=== PATIENT | male | born 1985 | race African-American/Black ===

== ENCOUNTER 2019-02-14 10:39 | Outpatient (CLI) | payer OTHER ==
--- NOTE | 2019-02-14 11:44 | CT ---
CT of the chest without IV contrast CT of the abdomen with and without IV contrast INDICATION: History of suspicious lung nodule seen on outside CT evaluation. History of liver lesion seen on an outside CT evaluation. Contrast: 70 cc of [id number] TECHNIQUE: Multiple CT images were obtained of the thorax without IV contrast. Axial, coronal and sag ittal reformatted images were constructed from the raw data. Comparisons are unavailable of the chest. Multiple CT images were obtained of the abdomen with and without IV contrast utilizing a renal mass p rotocol. Axial, coronal and sagittal reformatted images were constructed from the raw data. Comparisons are unavailable of the abdomen. FINDINGS: CT of the chest without contrast: No suspicious pulmonary nodule is identified. There is a stable tiny sub-4 mm pulmonary nodule within the lateral right middle lobe. The right upper lobe, right lower lobe, left upper lobe, lingula and left lower lobe are clear. The lack of IV contrast limits evaluation for hilar adenopathy. No def inite mediastinal lymphadenopathy is evident. The lack of IV contrast limits evaluation of heart and great vessels. No definite axillary lymphadenopathy is noted. IMPRESSION: 1. No suspicious pulmonary nodule. There is a sub-4 mm pulmonary nodule lateral right middle lobe. CT the abdomen with and without contrast There is diffuse fatty infiltration of the liver with areas of focal fatty sparing seen near the gall bladder fossa as well as the falciform ligament. There is a small hyperenhancing lesion within the medial left hepatic lobe on image 15 of series 9 measuring 7 mm that appears to fade to background de nsity on the delayed phase images. A similar enhancing subcentimeter nodule is seen within the right hepatic lobe on image 27 of series 9 measuring 6 mm. A more prominent nodule is seen within the lateral right hepatic lobe on image 36 series 9 measuring 1.2 cm. This lesion demonstrates some areas of peripheral nodular discontinuous enhancement with central filling is consistent with a small hemangioma. The remaining visualized portions of the abdomen demonstrate normal appearance of the pancreas, adren al glands, spleen and kidneys. No free fluid or enlarged lymph nodes are evident. There is postsurgical change of an appendectomy. No acute osseous abnormality is seen within the thorax or abdomen. IMPRESSION: 1. Diffuse fatty liver. 2. 1.2 cm lesion within the lateral right hepatic lobe demonstrates enhancement characteristics consi stent with a benign hemangioma. There are 2 additional hyperenhancing lesion seen within the medial left hepatic lobe and segment 5 of the right hepatic lobe that fades to background on the delayed pha se images and may reflect slightly atypical flash filling hemangioma. As a conservative measure a follow-up examination in 6 months is recommended to document stability. 3. Postsurgical change of a prior appendectomy.
[2019-02-14] MEDS ORDERED: ISOVUE-370 76%-LOCM 1 ML ONE (17:50)
== END 2019-02-14 10:40 | disposition home or self-care (01) ==
LOC: BICCT 10:39
DX: R91.1 Solitary pulmonary nodule (principal); F17.200 Nicotine dependence, unspecified, uncomplicated; K76.89 Other specified diseases of liver; K76.0 Fatty (change of) liver, not elsewhere classified; Z98.890 Other specified postprocedural states; Z80.1 Family history of malignant neoplasm of trachea, bronchus and lung
CPT/HCPCS: 71250; 74170; Q9966

== ENCOUNTER 2019-04-05 08:49 | Day surgery (SDC) | payer OTHER ==
--- NOTE | 2019-04-05 14:24 | OP ---
DATE OF PROCEDURE: 04/05/2019 PROCEDURE PERFORMED: Colonoscopy with biopsy and polypectomy. INDICATION FOR PROCEDURE: Chronic diarrhea, generalized abdominal pain, and hematochezia. DESCRIPTION OF PROCEDURE: After the risks and benefits of the procedure were explained to the patient including risks of bleeding, infection, perforation, reactions to anesthesia, aspiration, and/or pain, informed consent was obtained. The patient was then taken to the endoscopy suite, where deep sedation was administered via propofol and anesthesia support. Once adequate sedation was achieved, the standard colonoscope was introduced into the rectum (after a digital rectal examination) and advanced to the terminal ileum without difficulty. The quality of the prep was excellent. The patient tolerated the procedure well with no immediate perioperative complications. Upon conclusion of the procedure, all equipment was removed from the patient and he was transferred to Day Stay in satisfactory condition. FINDINGS: Digital rectal exam: Normal findings were seen on external examination. Colon findings: Normal-appearing mucosa was seen within the terminal ileum as well as at the appendiceal orifice and within the cecum itself. However, there were 2 small ulcerations measuring 1 to 2 mm in size seen on the superior aspect of the ileocecal valve. They did not exhibit any high-risk stigmata of active or recent bleeding. Biopsies were taken of these ulcerations and placed in a specimen jar for further evaluation. Normal-appearing mucosa was then seen within the ascending colon. However, scattered 3 to 5 mm polyps were then seen throughout the transverse, descending, and sigmoid colons that exhibited a slightly erythematous appearance with a centralized ulcer/white spot. It was unclear whether this was adenomatous tissue versus a lymphoid aggregate, so polypectomy was performed of a client relations representative sample of these lesions and placed in a specimen jar for evaluation (not all of these polyps were removed at this time). Otherwise, normal-appearing mucosa was seen in the transverse, descending, sigmoid colon, and rectum. Random colonic biopsies were performed all throughout the colon in the ascending, transverse, descending, sigmoid colon, and rectum for evaluation of microscopic colitis. Small internal hemorrhoids were seen on rectal retroflexion. IMPRESSION: 1. Small pinpoint ulcerations along the superior aspect of the ileocecal valve concerning for infectious versus inflammatory versus prep effect, status post biopsies. 2. Multiple 3 to 5 mm polyps seen throughout the entire colon with a central white spot and surrounding erythema, status post polypectomy of a client relations representative sample. 3. Small internal hemorrhoids. 4. Otherwise, no etiology for the patient's abdominal pain or diarrhea was seen during this examination. RECOMMENDATIONS: 1. Would continue to adhere to a higher fiber/FODMAP diet as part of a stool bulking technique. 2. We will follow up on the biopsy results with further management indicated by the results. 3. Again recommend a higher fiber diet for his small internal hemorrhoids as the most causative mechanism for his hematochezia. 4. Follow up in the GI Clinic in 3 to 4 weeks for further management of his chronic conditions and discussion of biopsy results. Job ID: [id number]
[2019-04-05] MEDS ORDERED: Lidocaine 1% PF 5 ML VIAL ONE (14:25)
[2019-04-05] MEDS ORDERED: PROPOFOL 200 MG/20 ML VIAL ONE (14:25)
== END 2019-04-05 11:50 | disposition home or self-care (01) ==
LOC: SDC 08:49
PROVIDERS: ATTEND Internal Medicine
PROC: 0DBL8ZX Excision of Transverse Colon, Via Natural or Artificial Opening Endoscopic, Diagnostic (ICD-10-PCS; principal; 2019-04-05)
PROC: 0DBP8ZX Excision of Rectum, Via Natural or Artificial Opening Endoscopic, Diagnostic (ICD-10-PCS; principal; 2019-04-05)
PROC: 0DBK8ZX Excision of Ascending Colon, Via Natural or Artificial Opening Endoscopic, Diagnostic (ICD-10-PCS; principal; 2019-04-05)
PROC: 0DBM8ZZ Excision of Descending Colon, Via Natural or Artificial Opening Endoscopic (ICD-10-PCS; principal; 2019-04-05)
PROC: 0DBN8ZZ Excision of Sigmoid Colon, Via Natural or Artificial Opening Endoscopic (ICD-10-PCS; principal; 2019-04-05)
DX: K63.5 Polyp of colon (principal); K52.9 Noninfective gastroenteritis and colitis, unspecified; K63.3 Ulcer of intestine; K64.8 Other hemorrhoids; F17.200 Nicotine dependence, unspecified, uncomplicated; G47.30 Sleep apnea, unspecified; E78.00 Pure hypercholesterolemia, unspecified; Z79.899 Other long term (current) drug therapy
CPT/HCPCS: 88305; J2001; J2704

== ENCOUNTER 2020-11-20 11:55 | Outpatient (CLI) | payer OTHER | END 2020-11-20 11:56 | disposition home or self-care (01) | LOC: BICRAD 11:55 | PROVIDERS: ATTEND Internal Medicine | DX: Z02.71 Encounter for disability determination (principal) | CPT/HCPCS: 72100 ==